=== PATIENT | female | born 1985 ===

== ENCOUNTER 2016-07-14 23:13 | Emergency (ER) | payer OTHER ==
[2016-07-14 23:27] VITALS: BMI 23.2
[2016-07-14 23:29] VITALS: BP 121/76; TEMP 98.2
--- NOTE | 2016-07-15 00:22 | ED PDOC ---
HPI: CCC, URI, Sore Throat Time Seen by Provider: 07/14/16 23:33 Chief Complaint (Nursing): Flu-like Symptoms Chief Complaint (Provider): cough History Per: Patient History/Exam Limitations: no limitations Onset/Duration Of Symptoms: Days (4 weeks) Current Symptoms Are (Timing): Still Present Additional History Per: Patient Additional Complaint(s): 31 y/o female presents for eval of persisent cough x 3 weeks. Patient states symptoms started as "head cold", but cough has since got worse; tonight with post-tussive vomiting which prompted ED visit. Denies fever, headache, nausea, shortness of breath, chest pain, palpitations, abdominal pain, recent travel, sick contacts. Past Medical History Reviewed: Historical Data, Nursing Documentation, Vital Signs Vital Signs: Last Vital Signs Temp 98.2 F 07/14/16 23:27 Pulse 95 H 07/14/16 23:27 Resp 17 07/14/16 23:27 BP 121/76 07/14/16 23:27 Pulse Ox 100 07/15/16 00:23 - Medical History PMH: No Chronic Diseases - Surgical History Surgical History: No Surg Hx - Family History Family History: States: Unknown Family Hx - Home Medications Home Medications: Ambulatory Orders Medication Instructions Recorded Albuterol HFA [Ventolin HFA 90 1 puff IH Q4 PRN #1 inh 07/15/16 mcg/actuation (8 g)] Azithromycin [Zithromax] 250 mg PO DAILY #1 packet 07/15/16 Fluticasone Nasal [Flonase] 1 actuation NS BID #1 bottle 07/15/16 Prednisone 50 mg PO DAILY #4 tablet 07/15/16 Promethazine/Phenyleph/Codeine 5 ml PO Q8 PRN #100 ml 07/15/16 [[id number] Syrup] - Allergies Allergies/Adverse Reactions: Allergies Allergy/AdvReac Type Severity Reaction Status Date / Time No Known Allergies Allergy Verified 07/14/16 23:26 Review of Systems ROS Statement: Except As Marked, All Systems Reviewed And Found Negative ENT: Positive for: Nose Discharge, Nose Congestion Respiratory: Positive for: Cough, Sputum Gastrointestinal: Positive for: Vomiting (post-tussive) Physical Exam - Reviewed Nursing Documentation Reviewed: Yes Vital Signs Reviewed: Yes - Physical Exam Appears: Positive for: Well, Non-toxic, No Acute Distress Head Exam: Positive for: ATRAUMATIC, NORMAL INSPECTION, NORMOCEPHALIC Skin: Positive for: Normal Color Eye Exam: Positive for: Normal appearance ENT: Positive for: Normal ENT Inspection Cardiovascular/Chest: Positive for: Regular Rate, Rhythm Respiratory: Positive for: Normal Breath Sounds Gastrointestinal/Abdominal: Positive for: Normal Exam Back: Positive for: Normal Inspection Extremity: Positive for: Normal ROM Neurologic/Psych: Positive for: Alert, Oriented - ECG O2 Sat by Pulse Oximetry: 100 - Radiology X-Ray: Viewed By Ga X-Ray Interpretation: No Acute Disease - Progress ED Course And Treament: solumedrol IM, heliox, duoneb Patient notes improvement of cough in ED. Patient educated on findings, discharged with rx zpak, flonase, albuterol, prednisone, promethazine with codeine. Patient educated on risk of narcotic use and potential for abuse/dependance/ overdose; advised to use as needed for severe cough only. Patient understands. Follow up PMD 2-3 days. Return to ED for worsening/concerning symptoms. Disposition - Clinical Impression Clinical Impression: Bronchitis - Patient ED Disposition Is Patient to be Admitted: No Counseled Patient/Family Regarding: Studies Performed, Diagnosis, Need For Followup, Rx Given - Disposition Disposition: Routine/Home Disposition Time: 01:54 Condition: IMPROVED Prescriptions: Albuterol HFA [Ventolin HFA 90 mcg/actuation (8 g)] 1 puff IH Q4 PRN #1 inh PRN Reason: Wheezing Azithromycin [Zithromax] 250 mg PO DAILY #1 packet Fluticasone Nasal [Flonase] 1 actuation NS BID #1 bottle Prednisone 50 mg PO DAILY #4 tablet Promethazine/Phenyleph/Codeine [[id number]-[id number] Syrup] 5 ml PO Q8 PRN # 100 ml PRN Reason: Cough Instructions: Acute Bronchitis (ED)
[2016-07-15] MEDS ORDERED: Albuterol-Ipratrop 3 mg / 0.5 (3 ml) UD IH STA (01:40)
[2016-07-15 01:58] VITALS: RESP 18
[2016-07-15 02:02] VITALS: PULSE 94; O2SAT 99
--- NOTE | 2016-07-15 10:27 | RAD ---
HISTORY: cough COMPARISON: None available. TECHNIQUE: Chest PA and lateral FINDINGS: LUNGS: No focal consolidation. Please note that chest x-ray has limited sensitivity for the detection of pulmonary masses. PLEURA: No significant pleural effusion identified. No definite pneumothorax . CARDIOVASCULAR: The cardiomediastinal silhouette appears within normal limits of size. OSSEOUS STRUCTURES: No acute osseous abnormality identified. VISUALIZED UPPER ABDOMEN: Unremarkable. OTHER FINDINGS: None. IMPRESSION: No focal consolidation, significant pleural effusion, or definite pneumothorax identified.
== END 2016-07-15 02:03 | disposition home or self-care (01) ==
LOC: H.ER 23:13
DX: J40 Bronchitis, not specified as acute or chronic (principal)